=== PATIENT | male | born 1975 | race Caucasian/White ===

== ENCOUNTER 2019-08-30 10:35 | Day surgery (SDC) | payer OTHER ==
[2019-08-29 12:23] VITALS: BMI 27.6
[2019-08-30] MEDS ORDERED: LIDOCAINE HCL 1%, 10 MG/ML (20ML VIAL) ONE (11:46)
[2019-08-30] MEDS ORDERED: BETAMET ACET/BETAMET NA PH 30 MG/5 ML VIAL ONE (11:47)
[2019-08-30] MEDS ORDERED: MIDAZOLAM HCL 2 MG/2 ML SINGLE DOSE VIAL ONE (11:49)
[2019-08-30] MEDS ORDERED: PROPOFOL 20 ML ONE (11:49)
[2019-08-30] MEDS ORDERED: ONDANSETRON 4 MG/2 ML VIAL IVPUSH PRN (12:15)
[2019-08-30] MEDS ORDERED: oxyCODONE HCL 5 MG TABLET PO PRN (12:15)
[2019-08-30] MEDS ORDERED: ACETAMINOPHEN 325 MG TABLET (FP) PO PRN (12:15)
[2019-08-30] MEDS ORDERED: IOHEXOL 180 MG/1 ML ML IJ ONE (12:35)
[2019-08-30] MEDS ORDERED: BETAMET ACET/BETAMET NA PH 30 MG/5 ML VIAL IJ ONE (12:35)
[2019-08-30] MEDS ORDERED: BUPIVACAINE HCL/PF 0.25% (2.5MG/ML) 10 ML VIAL IJ ONE (12:35)
[2019-08-30] MEDS ORDERED: LIDOCAINE HCL 1%, 10 MG/ML (50 mL VIAL) IJ ONE (12:35)
[2019-08-30 13:50] VITALS: BP 129/81; PULSE 54; TEMP 97.8
--- NOTE | 2019-09-05 23:07 | PROC ---
Procedure Note Procedure: Date of service: 08/30/2019 Preoperative Diagnosis: Low back pain and lumbar radiculopathy on Left Postoperative Diagnosis: Same Procedure Performed: Lumbar Epidural Steroid Injection on Transforaminal Left L4-5/ L5-S1 with dye under Fluoroscopy Anesthesia: Local / MAC Anesthesiologist: Procedure: I discussed with the patient in detail about the risks, benefits and alternatives to treatment not only limited to infection, headache, numbness, weakness and injury to nerves, blood vessels and muscles. The patient understood, agreed and signed the written consent. The patient was placed in the prone position with the head, abdomen and legs supported with the pillows. The lumbosacral area was prepped and draped with Betadine times three in a sterile fashion. The Left oblique view under the C-arm at L5- S1 level, with a #25 G, 1-1/2 needle 3 ml of 2% Lidocaine was infiltrated in the skin and subcutaneous tissue. A #22 gauge 3-1/2 inch spinal needle was used to approach epidural space via transforaminal approach with intermittent fluoroscopy in both AP and oblique views. After negative aspiration of blood and CSF, one ml of omnipaque (radio opaque dye) was used to confirm the spread of dye in epidural space. A solution containing 2.5 ml of Celestone and 2.5 ml of Marcaine 0.25% total volume 5 ml was prepared, 2.5 ml was injected into the left L5-S1 level. While the needle was withdrawn, 1 ml of Lidocaine was infiltrated. Similar procedure was repeated at Left L4-5 level. Bleeding was checked. Betadine was wiped off. A sterile bandage was placed. The patient tolerated the procedure well. There were no immediate complications. The patient was transferred to the recovery room. The patient was observed for some time and discharged with a family membe as per ASC Criteria. The patient was told to apply ice at the injection site. If there is any problem, call my office or report to ER. Neto Schafer M.D.
== END 2019-08-30 13:30 | disposition home or self-care (01) ==
LOC: JASU-SURG 10:35
PROVIDERS: ATTEND Physical Medicine & Rehabilitation
PROC: 3E0R33Z Introduction of Anti-inflammatory into Spinal Canal, Percutaneous Approach (ICD-10-PCS; 2019-08-30)
PROC: 3E0R3BZ Introduction of Anesthetic Agent into Spinal Canal, Percutaneous Approach (ICD-10-PCS; principal; 2019-08-30 12:00)
DX: M54.16 Radiculopathy, lumbar region (principal); M54.5 Low back pain
CPT/HCPCS: 76000-TC-FY